=== PATIENT | male | born 1990 | race Caucasian/White ===

== ENCOUNTER 2018-07-24 20:45 | Emergency (ER) | payer OTHER ==
[~2018-07-24] VITALS: Ht 182.9 cm; Wt 79.4 kg
[2018-07-24 20:53] VITALS: BP 134/74
[2018-07-24] MEDS ORDERED: AMOXICILLIN 50500 MG PO (21:11)
== END 2018-07-24 21:17 | disposition home or self-care (01) ==
LOC: M.ERS 20:45
DX: J02.0 Streptococcal pharyngitis (principal)

== ENCOUNTER 2018-10-28 01:56 | Emergency (ER) | payer OTHER ==
[~2018-10-28] VITALS: Ht 182.9 cm; Wt 71.0 kg
[~2018-10-28 01:56] MED LIST: AMOXICILLIN 50500 MG PO
[2018-10-28] MEDS ORDERED: ALLEGRA ALLERG180 MG PO (02:05)
[2018-10-28] MEDS ORDERED: IBUPROFEN 800800 M1 PO (03:27)
[2018-10-28 03:36] VITALS: BP 108/64
== END 2018-10-28 03:36 | disposition home or self-care (01) ==
LOC: M.ERS 01:56
DX: S40.011A Contusion of right shoulder, initial encounter (principal); W01.10XA Fall on same level from slipping, tripping and stumbling with subsequent striking against unspecified object, initial encounter; Y93.89 Activity, other specified; Y92.89 Other specified places as the place of occurrence of the external cause; Y99.8 Other external cause status